=== PATIENT | male | born 1970 | race Two or more races ===

== ENCOUNTER 2023-05-10 08:05 | Emergency (ER) | payer BC ==
[2023-05-10] MEDS ORDERED: Ibuprofen 600 MG Tab PO ONE (08:32)
== END 2023-05-10 10:22 | disposition home or self-care (01) ==
LOC: MW.ED 08:05
DX: S09.90XA Unspecified injury of head, initial encounter (principal); M54.6 Pain in thoracic spine; Z79.899 Other long term (current) drug therapy; W01.198A Fall on same level from slipping, tripping and stumbling with subsequent striking against other object, initial encounter; Y93.01 Activity, walking, marching and hiking
CPT/HCPCS: 70450; 72125; 72128; 99283; A9270